=== PATIENT | male | born 1965 | race Two or more races ===

== ENCOUNTER 2021-12-14 08:10 | Emergency (ER) | payer SELFPAY ==
[2021-12-14 08:17] VITALS: BP 117/70; PULSE 72; RESP 18; TEMP 98.9; BMI 29.7
[2021-12-14] MEDS ORDERED: IBUPROFEN 400 MG TABLET (FP) PO ONE (08:18)
[2021-12-14] MEDS ORDERED: LIDOCAINE 5% TOPICAL PATCH TP ONE (08:18)
[2021-12-14] MEDS ORDERED: LIDOCAINE PATCH REMOVAL MC SCH (22:00)
== END 2021-12-14 09:56 | disposition home or self-care (01) ==
LOC: FER 08:10
DX: M54.50 Low back pain, unspecified (principal)
CPT/HCPCS: 99283-25